=== PATIENT | female | born 1960 | race Caucasian/White ===

== ENCOUNTER 2018-12-08 16:42 | Day surgery (SDC) | payer OTHER ==
[~2018-12-08 16:42] MED LIST: CEFAZOLIN 1 GM INJ; CEFAZOLIN 2 GM/50 ML (PMX) 50 ML IVPB; DESFLURANE 15 MIN; GLYCOPYRROLATE 0.4 MG INJ; LACTATED RINGER'S 1,000 ML IV*; LIDOCAINE 2% (SDV) 5 ML INJ; NEOSTIGMINE 10 MG INJ; PROPOFOL 200 MG INJ; ROCURONIUM 50 MG INJ; SUCCINYLCHOLINE CHLORIDE 100 MG/5 ML SYG IV
[2018-12-08] MEDS ORDERED: MEPERIDINE 25 MG INJ IV (19:00)
[2018-12-08] MEDS ORDERED: HYDROmorphONE 1 MG/5 ML IV SYRINGE IV ×2 (19:00)
[2018-12-08] MEDS ORDERED: FENTAnyl 50 MCG/ML VIAL IV ×2 (19:00)
[2018-12-08] MEDS ORDERED: DIPHENHYDRAMINE 50 MG INJ IV (19:00)
[2018-12-08] MEDS ORDERED: METOCLOPRAMIDE 10 MG INJ IV (19:00)
[2018-12-08] MEDS ORDERED: ALBUTEROL 0.083% (NEB) 2.5 MG/3 ML AMP HHN (19:00)
[2018-12-08] MEDS ORDERED: MIDAZOLAM 1 MG/ML 2 ML INJ (19:08)
[2018-12-08] MEDS ORDERED: ROPIVACAINE 0.5 % 30 ML VIAL (19:09)
[2018-12-08] MEDS: ONDANSETRON 4 MG INJ IV (22:10)
[2018-12-08] MEDS: HYDROmorphONE 1 MG/5 ML IV SYRINGE IV (22:10)
== END 2018-12-08 22:52 | disposition home or self-care (01) ==
LOC: SDS 16:42
DX: M18.12 Unilateral primary osteoarthritis of first carpometacarpal joint, left hand (principal); M19.032 Primary osteoarthritis, left wrist; G56.02 Carpal tunnel syndrome, left upper limb; E78.5 Hyperlipidemia, unspecified
CPT/HCPCS: 25447; 73140

== ENCOUNTER 2019-06-08 15:59 | Day surgery (SDC) | payer OTHER ==
[~2019-06-08 15:59] MED LIST changes: -CEFAZOLIN 1 GM INJ; -DESFLURANE 15 MIN; -GLYCOPYRROLATE 0.4 MG INJ; +LACTATED RINGER'S 1,000 ML IV; -LACTATED RINGER'S 1,000 ML IV*; -LIDOCAINE 2% (SDV) 5 ML INJ; -NEOSTIGMINE 10 MG INJ; -PROPOFOL 200 MG INJ; -ROCURONIUM 50 MG INJ; -SUCCINYLCHOLINE CHLORIDE 100 MG/5 ML SYG IV
[2019-06-08] MEDS ORDERED: POLYMYXIN/BACITRACIN 1L IRRIG (17:35)
[2019-06-08] MEDS ORDERED: THROMBIN 5000 UNIT (RECOTHROM) VIAL (17:35)
[2019-06-08] MEDS ORDERED: GELATIN SIZE 100 SPONGE (17:35)
[2019-06-08] MEDS ORDERED: PROPOFOL 20 ML (17:50)
[2019-06-08] MEDS ORDERED: GLYCOPYRROLATE 0.4 MG INJ (17:50)
[2019-06-08] MEDS ORDERED: ROCURONIUM 50 MG INJ (17:50)
[2019-06-08] MEDS ORDERED: CEFAZOLIN 1 GM INJ (17:50)
[2019-06-08] MEDS ORDERED: NEOSTIGMINE 3 MG/3 ML SYRINGE (17:50)
[2019-06-08] MEDS ORDERED: MIDAZOLAM 1 MG/ML 2 ML INJ (17:52)
[2019-06-08] MEDS ORDERED: FENTAnyl 50 MCG/ML VIAL (17:52)
[2019-06-08] MEDS ORDERED: DEXAMETHASONE 4 MG/ML 5 ML INJ (17:52)
[2019-06-08] MEDS ORDERED: ONDANSETRON 4 MG INJ (17:52)
[2019-06-08] MEDS ORDERED: ROPIVACAINE 0.5 % 30 ML VIAL (17:53)
[2019-06-08] MEDS ORDERED: ALBUTEROL 0.083% (NEB) 2.5 MG/3 ML AMP HHN (18:00)
[2019-06-08] MEDS ORDERED: hydrALAzine 20 MG INJ IV (18:00)
[2019-06-08] MEDS ORDERED: EPHEDrine 25 MG/5 ML SYG IV (18:00)
[2019-06-08] MEDS ORDERED: IPRATROPIUM (NEB) 0.5 MG/2.5 ML AMP HHN (18:00)
[2019-06-08] MEDS ORDERED: ONDANSETRON 4 MG INJ IV (18:00)
[2019-06-08] MEDS ORDERED: FENTAnyl 50 MCG/ML VIAL IV ×3 (18:00)
[2019-06-08] MEDS ORDERED: DIPHENHYDRAMINE 50 MG INJ IV (18:00)
[2019-06-08] MEDS ORDERED: TRIMETHOBENZAMIDE 100 MG/ML VIAL IM (18:00)
[2019-06-08] MEDS ORDERED: MIDAZOLAM 1 MG/ML 2 ML INJ IV (18:00)
[2019-06-08] MEDS ORDERED: LABETALOL HCL 20MG INJ IV (18:00)
[2019-06-08] MEDS ORDERED: OXYCODONE/ACETAMINOPHEN (5/325) TAB PO ×2 (18:00)
[2019-06-08] MEDS ORDERED: MEPERIDINE 25 MG INJ IV (18:00)
[2019-06-08] MEDS ORDERED: HYDROmorphONE 1 MG/5 ML IV SYRINGE IV ×3 (18:00)
== END 2019-06-08 21:01 | disposition home or self-care (01) ==
LOC: SDS 15:59
DX: M18.11 Unilateral primary osteoarthritis of first carpometacarpal joint, right hand (principal); G56.01 Carpal tunnel syndrome, right upper limb
CPT/HCPCS: 25447; 73140